=== PATIENT | male | born 1990 | race Caucasian/White ===

== ENCOUNTER → 2022-02-05 | Day surgery (SDC) | payer OTHER ==
[~2022-02-05] VITALS: Ht 182.9 cm; Wt 137.4 kg
[~2022-02-05] MED LIST: BUSPIRONE HCL10 MG PO; LITHIUM CARBON300 MG PO; PROPRANOLOL HCL20 MG PO
[2022-02-05 07:39] LABS: BASOPHIL 1.2 % (0-2); EOSINOPHIL 6.3 % (0-5); HCT 47.4 % (42.0-52.0); HGB 16.2 g/dl (13.2-18.0); LYMPHOCYTE 36.1 % (15-48); MCH 29.5 pg (25.0-31.0); MCHC 34.2 g/dL (32.0-36.0); MCV 86.3 fL (78.0-100.0); MPV 9.8 fL (6.0-9.5); NEUTROPHIL 49.2 % (41-80); NRBC 0; PLT 193 K/uL (150-400); RBC 5.49 M/uL (4.70-6.00); WBC 5.7 K/uL (4.0-10.5)
== END | disposition home or self-care (01) ==
LOC: FAS 07:08
PROVIDERS: Oral & Maxillofacial Surgery
DX: K01.1 Impacted teeth (principal); K02.9 Dental caries, unspecified; F31.9 Bipolar disorder, unspecified; J45.909 Unspecified asthma, uncomplicated; I10 Essential (primary) hypertension; F17.210 Nicotine dependence, cigarettes, uncomplicated; E66.9 Obesity, unspecified; Z68.36 Body mass index [BMI] 36.0-36.9, adult
CPT/HCPCS: 36415; 85025; J1100; J2250; J2405; J2704; J3010; J7120